=== PATIENT | male | born 1980 ===

== ENCOUNTER 2021-10-29 15:33 | Emergency (ER) | payer SELFPAY ==
[2021-10-29 18:49] VITALS: BP 147/98
== END 2021-10-29 19:55 | disposition left against medical advice (07) ==
LOC: ED 15:33
DX: S61.210A Laceration without foreign body of right index finger without damage to nail, initial encounter (principal); Z53.21 Procedure and treatment not carried out due to patient leaving prior to being seen by health care provider; X58.XXXA Exposure to other specified factors, initial encounter; Y93.89 Activity, other specified; Y92.89 Other specified places as the place of occurrence of the external cause; Y99.8 Other external cause status